=== PATIENT | female | born 1955 | race Caucasian/White ===

== ENCOUNTER → 2018-04-28 09:09 | Outpatient (CLI) | payer OTHER, SELFPAY ==
[2018-04-28 10:41] LABS: Anion Gap 9 (5-15); BUN 19 mg/dL (7-18); BUN/Creat Ratio 25.3 RATIO (10-20); Calcium,Total 8.9 mg/dL (8.5-10.1); Chloride 104 mmol/L (98-107); Cholesterol 271 mg/dL (200); Creatinine, Serum 0.75 mg/dL (0.55-1.02); EST Glomerular Filtration Rate 82 mL/min (>60); Est Glom Filt Rate - Afr Amer 100 mL/min (>60); Glucose 89 mg/dL (74-106); High Density Lipoprotein 57 mg/dL; Potassium 4.4 mmol/L (3.5-5.1); Sodium Level 141 mmol/L (136-145); T4 Free Direct 1.19 ng/dL (0.76-1.46); Thyroid Stim Hormone (TSH) 3.28 uIU/mL (0.358-3.74); Triglycerides 153 mg/dL; Very Low Density Lipoprotein 31 mg/dL (5-40)
[2018-04-28 10:43] LABS: Vitamin D,25 Hydroxy 32.1 ng/mL (29.95-100.01)
[2018-05-01 13:22] LABS: HPV Reflexed? NOT INDICATED
== END ==
PROVIDERS: Family Provider Family Medicine; PCP Family Medicine; Visit Provider Family Medicine
DX: Z01.419 Encounter for gynecological examination (general) (routine) without abnormal findings (principal); E03.9 Hypothyroidism, unspecified; E55.9 Vitamin D deficiency, unspecified; R03.0 Elevated blood-pressure reading, without diagnosis of hypertension
CPT/HCPCS: 36415; 80048; 80061; 82306; 84439; 84443; 88175; G0145

== ENCOUNTER → 2022-02-12 | Outpatient (CLI) | payer OTHER, MEDICARE, SELFPAY ==
--- NOTE | 2022-02-12 09:08 | BD_ITS ---
STUDY: DUAL ENERGY X-RAY ABSORPTIOMETRY / DXA REASON FOR EXAM: Female, 66 years old. [id number]. The patient is postmenopausal. TECHNIQUE: Bone Mineral Density (BMD) measurements of lumbar spine and bilateral hips were obtained. COMPARISON: Comparison is made with prior study dated 09/11/2011. FINDINGS: Lumbar Spine (L1-L4): g/cm2 (1.024) / T-score (0.1) / Z-score (2.0) Findings are suggestive of normal bone density with a low fracture risk. Left Femur Total: g/cm2 (0.923) / T-score (-0.2) / Z-score (1.2) Left Femoral Neck: g/cm2 (0.697) / T-score (-1.4) / Z-score (0.3) Right Femur Total: g/cm2 (0.936) / T-score (0.0) / Z-score (1.3) Right Femoral Neck: g/cm2 (0.775) / T-score (-0.7) / Z-score (1.0) The T-Scores on the most recent prior examination were: Lumbar Spine (L1-L4): There has been improvement of bone density since the previous examination. Left Femur Total: which represents a worsening of 1.6%. Right Femur Total: which represents a worsening of 1.1%. BD/Dexa Bone Density Study IMPRESSION: The patient is considered osteopenic as outlined below according to World [employer] Organization (WHO) criteria with a low fracture risk. There has been worsening of bone density since the previous examination. Reference Information: The T-score is the number of standard deviations above or below the standard which is normal for young adults at their peak bone mineral density. The World Health Organization (WHO) interprets the T-scores as follows: Above -1 Normal bone density Between -1 and -2.5 Osteopenia Equal to / or below -2.5 Osteoporosis As a practical clinical guideline, osteopenia may be graded as follows: Mild -1 through -1.5 Moderate -1.6 through -2.0 Severe -2.1 through -2.4 The Z-score is the number of standard deviations above or below age-matched controls. A Z-score of less than -1.5 would be considered abnormal. References: 1. NIH Osteoporosis and Related Bone Diseases www osteo.org 2. International Society for Clinical Densitometry www iscd.org 3. National Osteoporosis Foundation www nof.org Electronically Signed: Ridge Matamoros MD at 12:31 EDT ,
== END | disposition home or self-care (01) ==
PROVIDERS: PCP Family Medicine; Visit Provider Family Medicine
DX: M81.0 Age-related osteoporosis without current pathological fracture (principal); Z78.0 Asymptomatic menopausal state
CPT/HCPCS: 77080

== ENCOUNTER 2022-03-08 21:15 | Emergency (ER) | payer MEDICARE, SELFPAY ==
[2022-03-08 21:16] VITALS: BP 113/65; PULSE 74; RESP 18; TEMP 37.1; O2SAT 98; BMI 27.4
--- NOTE | 2022-03-08 22:09 | RAD_ITS ---
STUDY: X-RAY - LEFT ELBOW REASON FOR EXAM: Female, 66 years old. INJURY TECHNIQUE: 3 view(s) of the elbow. COMPARISON: None. FINDINGS: Mid olecranon fracture with mild comminution and diastasis of the fragments. Small displaced medial trochlear fracture. No ulnar trochlear dislocation. Normal appearance of the proximal radius. Elbow joint effusion. Normal radiocapitellar articulation. No soft tissue gas or radiopaque foreign body. RAD/Elbow min 3 Views IMPRESSION: Olecranon fracture and small trochlear fracture. Electronically Signed: Luther Young MD at 22:29 EDT ,
--- NOTE | 2022-03-08 22:34 | EX.ED.UPPERE ---
HPI History of Present Illness Chief Complaint: Fall Narrative Narrative: Patient presents with injury to her left elbow status post fall. She was on a walk with her when she tripped over there a piece of uneven sidewalk, falling onto her left elbow and onto concrete. She denies hitting her head or loss of consciousness. She sustained an abrasion to her left elbow and now has pain constantly that is worse with movement. She is right-hand dominant. She denies other injury. Tetanus immunization is up-to-date. She denies any significant past medical history. PFSH PFSH Home Medications hydrocodone-acetaminophen 5-325mg 5mg-325mg 1 tab PO Q6H PRN pain 3 days #12 tabs 03/08/22 [Rx Last Taken Unknown] Allergy/AdvReac Type Severity Reaction Status Date / Time black pepper Allergy Other Verified 03/08/22 21:17 diphenhydramine Allergy Other Verified 03/08/22 21:17 [From Benadryl] Family History Father Diabetes Brother Cancer Bladder and renal CA. Surgical History H/O colonoscopy with polypectomy History of ear surgery History of tubal ligation S/P tonsillectomy and adenoidectomy Status post phlebectomy Social History household members: spouse and family Smoking Status: Never smoker alcohol intake: current alcohol intake frequency: a few times a month substance use type: does not use ROS ROS ED ROS Narrative Constitutional: No fever, no chills. HEENT: No sore throat. No neck pain. No loss of vision. No rhinorrhea. Cardiovascular: No chest pain. No palpitations. No pedal edema. Respiratory: No cough, no shortness of breath. Abdominal: No abdominal pain. No nausea. No vomiting. Genitourinary: No dysuria. No hematuria. Musculoskeletal: No myalgias. Left elbow pain with abrasion. Neurologic: No headaches. No dizziness. No lightheadedness. Skin: No rash. No change in color. Psychiatric: No depression. No anxiety. EXAM Physical Exam Narrative Exam Narrative: Afebrile. Vital signs noted. HEENT: Normocephalic. Atraumatic. PERRL, EOMI. Neck soft and supple. No point tenderness or step off. Cardiovascular: Regular rate and rhythm. No murmurs, rubs, or gallops appreciated. Respiratory: No tachypnea. Lungs clear to auscultation bilaterally. Gastrointestinal: Abdomen soft, nontender, with normoactive bowel sounds. No rebound or guarding. Neurological: Awake. Alert. Nonfocal, nonlateralizing. Skin: No rash. Normal color. No pallor. Positive abrasion to left proximal forearm/elbow, no active bleeding. Musculoskeletal: No pedal edema. Tenderness to palpation over left olecranon. And proximal forearm. Able to pronate and supinate wrist. Neurovascular intact distally with palpable radial pulse. Const Vital Signs: 03/08/22 21:16 03/08/22 21:48 Temperature 98.8 F Temperature Source Temporal Pulse Rate 74 Respiratory Rate 18 Respiratory Effort Normal Non-Labored Blood Pressure 113/65 Blood Pressure Mean 81 Pulse Ox 98 Oxygen Delivery Method Room Air Room Air MDM MDM MDM Narrative Medical decision making narrative: Patient was given an ice pack for comfort, elbow is obtained to the left elbow which does show an olecranon fracture. This was interpreted by myself. Her tetanus immunization is up-to-date. She was given a Mclaughlin tablet here for analgesia. She will be placed in an long-arm posterior splint and will follow-up with orthopedics. Ortho-Glass long-arm splint applied by ED physician. Radiology did also read a trochlear fracture that is small in nature. She will be given a prescription for Mclaughlin. Disposition is discharged home in stable condition. I did refer them to the orthopedic surgeon on-call, but they state that they may have an orthopedic surgeon they would like to see in the [facility]. Regardless, I recommended close follow-up in the next 3 to 5 days. I stressed the importance of follow-up with orthopedic surgery as this may require surgical intervention. Radiography Diagnostic Testing: Clinical Impression(s) from Imaging Studies Elbow X-Ray 03/08/22 22:09 IMPRESSION: Olecranon fracture and small trochlear fracture. Electronically Signed: Luther Young MD at 22:29 EDT , Procedures Upper Extremity Splints Upper Extremity Splint: Orthoglass and Long arm Splint Fabrication: Fabricated Location: Right Discharge Plan Triage Chief Complaint: Fall ED Provider: Kilo Harris Dx/Rx/DC Orders Clinical Impression: Fall, Olecranon fracture, Closed fracture of trochlea of humerus Instructions: ED Elbow Fracture, ED Mechanical Fall Prescriptions: New hydrocodone-acetaminophen 5-325 mg tablet 1 tab PO Q6H PRN (Reason: pain) 3 Days Qty: 12 0RF Primary Care Provider: Sabino Singleton Referrals: Sabino Singleton MD [Primary Care Provider] - Js Felix MD [Med Staff - Active Staff] - 3-5 Days Activity Restrictions/Additional Instructions: Keep your splint clean and dry. Follow-up with orthopedics within the next 3 to 5 days. Disposition Disposition: Home, Self Care
[2022-03-08] MEDS: HYDROcodone Bitartrate/Apap 5/325 Tablet PO (22:46)
[2022-03-08 23:53] VITALS: BP 155/88; PULSE 67; RESP 18; O2SAT 98
== END 2022-03-08 23:58 | disposition home or self-care (01) ==
PROVIDERS: Emergency Provider Emergency Medicine; PCP Family Medicine; Visit Provider Emergency Medicine
DX: S52.022A Displaced fracture of olecranon process without intraarticular extension of left ulna, initial encounter for closed fracture (principal); S42.462A Displaced fracture of medial condyle of left humerus, initial encounter for closed fracture; W10.1XXA Fall (on)(from) sidewalk curb, initial encounter
CPT/HCPCS: 29405; 73080; 99285; A4216

== ENCOUNTER → 2023-07-01 | Outpatient (CLI) | payer MEDICARE, SELFPAY ==
[2023-07-01 10:53] LABS: Vitamin D,25 Hydroxy 44.8 ng/mL
[2023-07-01 11:12] LABS: Anion Gap 6 (5-15); BUN 20 mg/dL (7-18); BUN/Creat Ratio 29.2 RATIO (10-20); Calcium,Total 8.7 mg/dL (8.5-10.1); Chloride 107 mmol/L (98-107); Cholesterol 254 mg/dL (200); Creatinine, Serum 0.68 mg/dL (0.55-1.02); EST Glomerular Filtration Rate 90 mL/min (>60); Est Glom Filt Rate - Afr Amer 109 mL/min (>60); Glucose 90 mg/dL (74-106); High Density Lipoprotein 60 mg/dL; Sodium Level 139 mmol/L (136-145); Thyroid Stim Hormone (TSH) 3.51 uIU/mL (0.358-3.74); Triglycerides 147 mg/dL; Very Low Density Lipoprotein 29 mg/dL (5-40)
== END | disposition home or self-care (01) ==
LOC: MFPLAB 09:14
PROVIDERS: PCP Family Medicine; Visit Provider Family Medicine
DX: E55.9 Vitamin D deficiency, unspecified (principal); E03.9 Hypothyroidism, unspecified
CPT/HCPCS: 36415; 80048; 80061; 82306; 84443

== ENCOUNTER → 2024-07-22 | Outpatient (CLI) | payer MEDICARE, SELFPAY ==
[2024-07-22 12:35] LABS: AST(SGOT) 26 U/L (15-37); Alanine Aminotransfer ALT/SGPT 27 U/L (13-56); Albumin, Serum 3.8 g/dL (3.2-5.0); Alkaline Phosphatase 85 U/L (45-117); Anion Gap 6 (5-15); BUN 17 mg/dL (7-18); BUN/Creat Ratio 23.2 RATIO (10-20); Calcium,Total 9.1 mg/dL (8.5-10.1); Chloride 105 mmol/L (98-107); Cholesterol 281 mg/dL (200); Creatinine, Serum 0.73 mg/dL (0.55-1.02); EST Glomerular Filtration Rate 83 mL/min (>60); Est Glom Filt Rate - Afr Amer 101 mL/min (>60); Globulin 3.7 g/dL (2.2-4.2); Glucose 89 mg/dL (74-106); High Density Lipoprotein 60 mg/dL; Potassium 4.2 mmol/L (3.5-5.1); Protein, Total 7.5 g/dL (6.4-8.2); Sodium Level 139 mmol/L (136-145); T4 Free Direct 1.56 ng/dL (0.76-1.46); Triglycerides 122 mg/dL; Very Low Density Lipoprotein 24 mg/dL (5-40)
[2024-07-22 12:38] LABS: Vitamin D,25 Hydroxy 44.5 ng/mL
== END | disposition home or self-care (01) ==
PROVIDERS: PCP Family Medicine; Referring Provider Family Medicine; Visit Provider Family Medicine
DX: E03.9 Hypothyroidism, unspecified (principal); E78.5 Hyperlipidemia, unspecified; M85.80 Other specified disorders of bone density and structure, unspecified site
CPT/HCPCS: 36415; 80053; 80061; 82306; 84439; 84443

== ENCOUNTER → 2024-10-07 | Outpatient (CLI) | payer MEDICARE, SELFPAY ==
--- NOTE | 2024-10-07 12:33 | BD_ITS ---
PROCEDURE: DEXA BONE DENSITY STUDY REASON FOR EXAM: F, age 69 y/o . Postmenopausal. TECHNIQUE: DEXA scan of the lumbar spine and both hips. COMPARISON: Comparison is made with prior study dated February 12, 2022. FINDINGS: Lumbar Spine (L1-L4): g/cm2 (0.990)/T-score (-0.2)/Z-score (1.8) findings are suggestive of normal with a low fracture risk. Left Femur Total: g/cm2 (0.966)/T-score (0.2)/Z-score (1.7) Left Femoral Neck: g/cm2 (0.691)/T-score (-1.4)/Z-score (0.4) Right Femur Total: g/cm2 (0.943)/T-score (0.0)/Z-score (1.5) Right Femoral Neck: g/cm2 (0.747)/T-score (-0.9)/Z-score (0.9) The T-Scores on the most recent prior examination were: Lumbar Spine (L1-L4): There has been worsening of bone density since the previous examination. Left Femur Total: Improvement of 4.7%. Right Femur Total: Improvement of 0.8%. BD/Dexa Bone Density Study IMPRESSION: The patient is considered osteopenic as outlined below according to World [employer] Organization (WHO) criteria with a low fracture risk. There has been improvement of bone density since the previous examelidia delacruz Reading Location: [place]
== END | disposition home or self-care (01) ==
PROVIDERS: PCP Family Medicine; Referring Provider Family Medicine; Visit Provider Family Medicine
DX: Z13.820 Encounter for screening for osteoporosis (principal); Z78.0 Asymptomatic menopausal state; M85.80 Other specified disorders of bone density and structure, unspecified site
CPT/HCPCS: 77080